=== PATIENT | female | born 2000 | race Caucasian/White ===

== ENCOUNTER 2021-12-17 05:38 | Inpatient (IN) | payer BC ==
[2021-12-17] MEDS ORDERED: Acetaminophen 500 MG Tab PO ONE (06:39)
[2021-12-17] MEDS ORDERED: Scopolamine 1.5 MG Transdermal Patch TOP ONE (06:39)
[2021-12-17] MEDS ORDERED: Celecoxib 200 MG Cap PO ONE (06:41)
[2021-12-17] MEDS ORDERED: Dextrose 5%-Lactated Ringers 1,000 ML IV SCH (06:45)
[2021-12-17] MEDS ORDERED: cefOXitin 2 GM Vial ONE (06:58)
[2021-12-17] MEDS ORDERED: Lidocaine 1% with EPINEPHrine 1:100,000 50 ML MDV ONE (06:58)
[2021-12-17] MEDS ORDERED: Bupivacaine 0.5% 30 ML SDV ONE (06:58)
[2021-12-17] MEDS ORDERED: Glycopyrrolate 0.2 MG/ML 5 ML MDV ONE (07:05)
[2021-12-17] MEDS ORDERED: Neostigmine Methylsulfate 1 MG/ML 5 ML Syringe ONE (07:05)
[2021-12-17] MEDS ORDERED: Dexamethasone 4 MG/ML SDV ONE (07:05)
[2021-12-17] MEDS ORDERED: Ondansetron 4 MG/2 ML SDV ONE (07:05)
[2021-12-17] MEDS ORDERED: fentaNYL 250 MCG/5 ML SDV ONE ×2 (07:05→08:07)
[2021-12-17] MEDS ORDERED: Rocuronium 50 MG/5 ML Vial ONE ×2 (07:05→08:42)
[2021-12-17] MEDS ORDERED: Propofol 200 MG/20 ML SDV ONE (07:05)
[2021-12-17] MEDS ORDERED: Succinylcholine 200 MG/10 ML MDV ONE (07:05)
[2021-12-17] MEDS ORDERED: cefOXitin 2 GM in Sodium Chloride 0.9% 50 ML IV ONE (07:30)
[2021-12-17] MEDS ORDERED: Ketamine 500 MG/5 ML MDV IV SCH (07:45)
[2021-12-17] MEDS ORDERED: Ketamine 17 MG in Sodium Chloride 0.9% 19.83 ML IV SCH (07:45)
[2021-12-17] MEDS ORDERED: Labetalol 20 MG/4 ML Syringe ONE ×2 (08:31→10:23)
[2021-12-17] MEDS ORDERED: hydrALAZINE 20 MG/ML SDV ONE (09:00)
[2021-12-17] MEDS ORDERED: Glucagon,Human Recombinant 1 MG Vial ONE (09:09)
[2021-12-17] MEDS ORDERED: fentaNYL 100 MCG/2 ML SDV ONE ×2 (09:18→10:24)
[2021-12-17] MEDS ORDERED: Lactated Ringers 1,000 ML ONE (10:23)
[2021-12-17] MEDS ORDERED: cefOXitin 2 GM Vial IRR ONE (10:30)
[2021-12-17] MEDS ORDERED: Sugammadex Sodium 200 MG/2 ML VIAL ONE (10:56)
[2021-12-17] MEDS ORDERED: Ondansetron 4 MG/2 ML SDV IVPUSH ONE (12:00)
[2021-12-17] MEDS ORDERED: hydrOXYzine HCL 100 MG/2 ML SDV IM ONE (12:15)
[2021-12-17] MEDS ORDERED: fentaNYL 50 MCG/ML SDV IVPUSH ONE (12:15)
[2021-12-17] MEDS ORDERED: Cyclobenzaprine 10 MG Tab PO PRN (13:47)
[2021-12-17] MEDS ORDERED: hydrOXYzine HCL 100 MG/2 ML SDV IM PRN (14:00)
[2021-12-17] MEDS ORDERED: Labetalol 20 MG/4 ML Syringe IVPUSH PRN (14:00)
[2021-12-17] MEDS ORDERED: traMADol 50 MG Tab PO PRN (14:00)
[2021-12-17] MEDS ORDERED: diphenhydrAMINE 50 MG/ML SDV IVPUSH PRN (14:00)
[2021-12-17] MEDS ORDERED: HYDROmorphone 0.5 MG/0.5 ML Syringe IVPUSH PRN (14:00)
[2021-12-17] MEDS ORDERED: Acetaminophen 500 MG Tab PO PRN (14:00)
[2021-12-17] MEDS ORDERED: HYDROmorphone 1 MG/ML Syringe IV PRN (14:00)
[2021-12-17] MEDS ORDERED: oxyCODONE 5 MG Tab PO PRN (14:00)
[2021-12-17] MEDS: Ondansetron 4 MG/2 ML SDV IVPUSH PRN ×2 (14:39→19:03)
[2021-12-17] MEDS: cefOXitin 2 GM in Sodium Chloride 0.9% 50 ML IV SCH ×2 (14:40→19:20)
[2021-12-17] MEDS: Acetaminophen 500 MG Tab PO SCH ×2 (14:41→21:46)
[2021-12-17] MEDS: Metoclopramide 10 MG/2 ML SDV IVPUSH PRN ×2 (16:52→23:10)
[2021-12-17] MEDS: MVI, Adult with Vitamin K 10 ML, Thiamine 200 MG, Zinc/Copper/Manganese/Selenium 1 ML i... IV SCH ×4 (16:52)
[2021-12-17] MEDS: Pantoprazole 40 MG Vial IVPUSH SCH (16:52)
[2021-12-17] MEDS: Heparin Sodium 5,000 Units/ML Vial SUBCUT SCH (18:12)
[2021-12-17] MEDS: Dextrose 5%-Lactated Ringers 1,000 ML IV SCH (23:15)
[2021-12-18] MEDS: Ondansetron 4 MG/2 ML SDV IVPUSH PRN ×2 (01:24→05:19)
[2021-12-18] MEDS: cefOXitin 2 GM in Sodium Chloride 0.9% 50 ML IV SCH ×4 (02:05→20:39)
[2021-12-18] MEDS: LORazepam 2 MG/ML SDV IVPUSH PRN ×2 (02:19→07:33)
[2021-12-18] MEDS ORDERED: Iopamidol 612 MG/ML 50 ML SDV PO STA (03:18)
[2021-12-18] MEDS: Heparin Sodium 5,000 Units/ML Vial SUBCUT SCH ×2 (05:05→17:00)
[2021-12-18] MEDS: Dextrose 5%-Lactated Ringers 1,000 ML IV SCH ×2 (05:05→11:59)
[2021-12-18] MEDS: Acetaminophen 500 MG Tab PO SCH (05:06)
[2021-12-18] MEDS: Metoclopramide 10 MG/2 ML SDV IVPUSH PRN (05:10)
[2021-12-18] MEDS: Metoclopramide 10 MG/2 ML SDV IVPUSH SCH ×3 (08:34→20:31)
[2021-12-18] MEDS ORDERED: Celecoxib 200 MG Cap PO SCH (09:00)
[2021-12-18] MEDS: Acetaminophen 1,000 MG in Premix Bag 1 BAG IV SCH ×3 (09:09→20:30)
[2021-12-18] MEDS: Escitalopram 10 MG Tab PO SCH (10:30)
[2021-12-18] MEDS: buPROPion 150 MG Tab.ER PO SCH (10:31)
[2021-12-18] MEDS: SCOPOLAMINE PATCH CHECK TOP SCH (10:37)
[2021-12-18] MEDS: Pantoprazole 40 MG Vial IVPUSH SCH (16:53)
[2021-12-18] MEDS: MVI, Adult with Vitamin K 10 ML, Thiamine 200 MG, Zinc/Copper/Manganese/Selenium 1 ML i... IV SCH ×4 (16:56)
[2021-12-19] MEDS: Acetaminophen 1,000 MG in Premix Bag 1 BAG IV SCH ×4 (03:01→21:39)
[2021-12-19] MEDS: Metoclopramide 10 MG/2 ML SDV IVPUSH SCH ×4 (03:02→21:39)
[2021-12-19] MEDS: Heparin Sodium 5,000 Units/ML Vial SUBCUT SCH ×2 (05:54→17:46)
[2021-12-19] MEDS ORDERED: Cyanocobalamin (Vitamin B12) 1,000 MCG/ML SDV IM ONE (09:00)
[2021-12-19] MEDS: buPROPion 150 MG Tab.ER PO SCH (09:06)
[2021-12-19] MEDS: SCOPOLAMINE PATCH CHECK TOP SCH (09:06)
[2021-12-19] MEDS: Escitalopram 10 MG Tab PO SCH (09:06)
[2021-12-19] MEDS: Pantoprazole 40 MG Vial IVPUSH SCH (17:46)
[2021-12-20] MEDS: Ondansetron 4 MG/2 ML SDV IVPUSH PRN (00:48)
[2021-12-20] MEDS: Acetaminophen 1,000 MG in Premix Bag 1 BAG IV SCH ×4 (02:45→20:57)
[2021-12-20] MEDS: Metoclopramide 10 MG/2 ML SDV IVPUSH SCH ×4 (02:45→20:57)
[2021-12-20] MEDS: Dextrose 5%-Lactated Ringers 1,000 ML IV SCH ×3 (02:55→23:21)
[2021-12-20] MEDS ORDERED: Iopamidol 612 MG/ML 50 ML SDV PO ONE (04:00)
[2021-12-20] MEDS: Heparin Sodium 5,000 Units/ML Vial SUBCUT SCH ×2 (05:29→18:06)
[2021-12-20] MEDS: buPROPion 150 MG Tab.ER PO SCH (08:42)
[2021-12-20] MEDS: Escitalopram 10 MG Tab PO SCH (08:42)
[2021-12-20] MEDS: Pantoprazole 40 MG Vial IVPUSH SCH (16:31)
[2021-12-21] MEDS ORDERED: Iopamidol 612 MG/ML 50 ML SDV PO STA (01:38)
[2021-12-21] MEDS: Metoclopramide 10 MG/2 ML SDV IVPUSH SCH ×3 (02:34→15:55)
[2021-12-21] MEDS: Acetaminophen 1,000 MG in Premix Bag 1 BAG IV SCH ×2 (02:34→12:44)
[2021-12-21 04:54] LABS: ESTIMATED GFR 107 mL/min (>60)
[2021-12-21] MEDS: Heparin Sodium 5,000 Units/ML Vial SUBCUT SCH ×2 (06:01→18:21)
[2021-12-21] MEDS ORDERED: Potassium Chloride 20 MEQ, Lidocaine 1% 2 ML in Sodium Chloride 0.9% 100 ML IV SCH ×2 (06:45→08:00)
[2021-12-21] MEDS ORDERED: fentaNYL 100 MCG/2 ML SDV ONE (08:26)
[2021-12-21] MEDS ORDERED: Midazolam 1 MG/ML 2 ML SDV ONE (08:26)
[2021-12-21] MEDS ORDERED: Propofol 200 MG/20 ML SDV ONE ×2 (08:26→10:35)
[2021-12-21] MEDS: Dextrose 5%-Lactated Ringers 1,000 ML IV SCH ×2 (10:08→23:55)
[2021-12-21] MEDS ORDERED: Glycopyrrolate 0.2 MG/ML 5 ML MDV ONE (10:39)
[2021-12-21] MEDS ORDERED: Dexamethasone 4 MG/ML SDV ONE (10:39)
[2021-12-21] MEDS ORDERED: Rocuronium 50 MG/5 ML Vial ONE (10:39)
[2021-12-21] MEDS ORDERED: Succinylcholine 200 MG/10 ML MDV ONE (10:39)
[2021-12-21] MEDS ORDERED: Ondansetron 4 MG/2 ML SDV ONE (10:39)
[2021-12-21] MEDS ORDERED: Neostigmine Methylsulfate 1 MG/ML 5 ML Syringe ONE (10:39)
[2021-12-21] MEDS ORDERED: fentaNYL 250 MCG/5 ML SDV ONE (10:42)
[2021-12-21] MEDS ORDERED: Meropenem 500 MG SDV ONE ×2 (10:55→11:14)
[2021-12-21] MEDS ORDERED: Sodium Chloride 0.9% 10 ML ONE (10:55)
[2021-12-21] MEDS ORDERED: Labetalol 20 MG/4 ML Syringe ONE (11:12)
[2021-12-21] MEDS ORDERED: diphenhydrAMINE 50 MG/ML SDV IVPUSH PRN (11:48)
[2021-12-21] MEDS ORDERED: diphenhydrAMINE 25 MG Cap PO PRN (11:48)
[2021-12-21] MEDS ORDERED: Naloxone 0.4 MG/ML SDV IVPUSH PRN (11:48)
[2021-12-21] MEDS ORDERED: Ondansetron 4 MG/2 ML SDV IVPUSH PRN (11:48)
[2021-12-21] MEDS ORDERED: Ketamine 18 MG in Sodium Chloride 0.9% 19.82 ML IV SCH (12:00)
[2021-12-21] MEDS ORDERED: Ketamine 500 MG/5 ML MDV IV SCH (12:00)
[2021-12-21] MEDS ORDERED: Naloxone 0.4 MG/ML SDV IV PRN (12:00)
[2021-12-21] MEDS ORDERED: Lactated Ringers 1,000 ML ONE (12:04)
[2021-12-21] MEDS ORDERED: Sugammadex Sodium 200 MG/2 ML VIAL ONE (12:17)
[2021-12-21] MEDS: HYDROmorphone/Normal Saline 6 MG/30 ML PCA Vial IV PRN ×2 (12:47→16:37)
[2021-12-21] MEDS ORDERED: hydrOXYzine HCL 100 MG/2 ML SDV IM ONE (13:00)
[2021-12-21] MEDS ORDERED: Scopolamine 1.5 MG Transdermal Patch TOP SCH (13:00)
[2021-12-21] MEDS ORDERED: Albuterol/Ipratropium 3.0-0.5 MG/3 ML Neb Soln INH PRN (14:13)
[2021-12-21] MEDS: Escitalopram 10 MG Tab PO SCH (14:20)
[2021-12-21] MEDS: buPROPion 150 MG Tab.ER PO SCH (14:21)
[2021-12-21] MEDS: SCOPOLAMINE PATCH CHECK TOP SCH (14:29)
[2021-12-21] MEDS ORDERED: Acetaminophen 500 MG Tab PO PRN (15:00)
[2021-12-21] MEDS ORDERED: Metoclopramide 10 MG/2 ML SDV IVPUSH PRN (15:00)
[2021-12-21] MEDS: Pantoprazole 40 MG Vial IVPUSH SCH (15:57)
[2021-12-21] MEDS: MVI, Adult with Vitamin K 10 ML, Thiamine 200 MG, Zinc/Copper/Manganese/Selenium 1 ML i... IV SCH ×4 (16:53)
[2021-12-21] MEDS: Meropenem 500 MG in Sodium Chloride 0.9% 50 ML IV SCH ×2 (16:55→22:40)
[2021-12-21] MEDS: Acetaminophen 500 MG Tab PO SCH (18:21)
[2021-12-22] MEDS: Acetaminophen 500 MG Tab PO SCH ×3 (02:54→17:39)
[2021-12-22] MEDS ORDERED: Iopamidol 612 MG/ML 50 ML SDV PO STA (03:52)
[2021-12-22] MEDS: HYDROmorphone/Normal Saline 6 MG/30 ML PCA Vial IV PRN ×3 (03:59→21:34)
[2021-12-22] MEDS ORDERED: methylPREDNISolone Sodium Succinate 125 MG/2 ML SDV IVPUSH ONE (04:00)
[2021-12-22] MEDS: Meropenem 500 MG in Sodium Chloride 0.9% 50 ML IV SCH ×4 (05:00→22:27)
[2021-12-22] MEDS: Heparin Sodium 5,000 Units/ML Vial SUBCUT SCH ×2 (05:02→17:38)
[2021-12-22] MEDS: Dextrose 5%-Lactated Ringers 1,000 ML IV SCH (06:04)
[2021-12-22] MEDS ORDERED: Ondansetron 4 MG Tab.DIS PO PRN (07:01)
[2021-12-22] MEDS ORDERED: Dextrose 5%-Lactated Ringers 1,000 ML IV SCH (07:15)
[2021-12-22] MEDS: Bisacodyl 5 MG Tab PO SCH ×2 (08:11→21:41)
[2021-12-22] MEDS: Docusate Sodium 100 MG Cap PO SCH ×2 (08:11→21:41)
[2021-12-22] MEDS: Celecoxib 200 MG Cap PO SCH ×2 (08:12→21:41)
[2021-12-22] MEDS: buPROPion 150 MG Tab.ER PO SCH (08:12)
[2021-12-22] MEDS: SCOPOLAMINE PATCH CHECK TOP SCH (08:12)
[2021-12-22] MEDS: Escitalopram 10 MG Tab PO SCH (08:12)
[2021-12-22] MEDS: MVI, Adult with Vitamin K 10 ML, Thiamine 200 MG, Zinc/Copper/Manganese/Selenium 1 ML i... IV SCH ×4 (16:51)
[2021-12-22] MEDS: Pantoprazole 40 MG Tab.CR PO SCH (16:51)
[2021-12-23] MEDS: Acetaminophen 500 MG Tab PO SCH ×3 (01:26→17:26)
[2021-12-23] MEDS: Heparin Sodium 5,000 Units/ML Vial SUBCUT SCH ×2 (05:00→17:26)
[2021-12-23] MEDS: Meropenem 500 MG in Sodium Chloride 0.9% 50 ML IV SCH ×2 (05:00→10:51)
[2021-12-23] MEDS: oxyCODONE 5 MG Tab PO PRN ×3 (08:48→21:06)
[2021-12-23] MEDS: Celecoxib 200 MG Cap PO SCH ×2 (08:49→20:11)
[2021-12-23] MEDS: Docusate Sodium 100 MG Cap PO SCH (08:49)
[2021-12-23] MEDS: Escitalopram 10 MG Tab PO SCH (08:49)
[2021-12-23] MEDS: SCOPOLAMINE PATCH CHECK TOP SCH (08:50)
[2021-12-23] MEDS: buPROPion 150 MG Tab.ER PO SCH (08:50)
[2021-12-23] MEDS: Bisacodyl 5 MG Tab PO SCH (08:55)
[2021-12-23] MEDS ORDERED: Cyanocobalamin (Vitamin B12) 1,000 MCG/ML SDV IM ONE (09:00)
[2021-12-23] MEDS: hydrOXYzine HCl 25 MG Tab PO PRN ×2 (12:53→20:11)
[2021-12-23] MEDS: Pantoprazole 40 MG Tab.CR PO SCH (15:00)
[2021-12-23] MEDS ORDERED: diphenhydrAMINE 25 MG Cap PO PRN (19:36)
[2021-12-23] MEDS: Loperamide 2 MG Cap PO PRN (21:26)
[2021-12-24] MEDS: Acetaminophen 500 MG Tab PO SCH ×2 (01:16→09:09)
[2021-12-24] MEDS: hydrOXYzine HCl 25 MG Tab PO PRN ×2 (01:17→07:42)
[2021-12-24] MEDS: oxyCODONE 5 MG Tab PO PRN ×2 (03:05→09:08)
[2021-12-24] MEDS: Loperamide 2 MG Cap PO PRN (03:23)
[2021-12-24] MEDS: Heparin Sodium 5,000 Units/ML Vial SUBCUT SCH (05:19)
[2021-12-24] MEDS: buPROPion 150 MG Tab.ER PO SCH (08:35)
[2021-12-24] MEDS: Escitalopram 10 MG Tab PO SCH (08:35)
[2021-12-24] MEDS: Celecoxib 200 MG Cap PO SCH (08:35)
== END 2021-12-24 11:30 | disposition home or self-care (01) | DRG 220 ==
LOC: JP.SDS 05:38 → EDSTATUS 08:45 → JP.2SS 13:20
PROVIDERS: ADMIT Surgery; ATTEND Surgery
PROC: 0D194ZA Bypass Duodenum to Jejunum, Percutaneous Endoscopic Approach (ICD-10-PCS; principal; 2021-12-17)
PROC: 0BQT4ZZ Repair Diaphragm, Percutaneous Endoscopic Approach (ICD-10-PCS; 2021-12-17)
PROC: 0FB04ZX Excision of Liver, Percutaneous Endoscopic Approach, Diagnostic (ICD-10-PCS; 2021-12-17)
PROC: 0D798ZZ Dilation of Duodenum, Via Natural or Artificial Opening Endoscopic (ICD-10-PCS; 2021-12-21)
PROC: 0DT64ZZ Resection of Stomach, Percutaneous Endoscopic Approach (ICD-10-PCS; 2021-12-21)
PROC: 0D164ZA Bypass Stomach to Jejunum, Percutaneous Endoscopic Approach (ICD-10-PCS; 2021-12-21)
PROC: 0DT84ZZ Resection of Small Intestine, Percutaneous Endoscopic Approach (ICD-10-PCS; 2021-12-21)
DX: K44.9 Diaphragmatic hernia without obstruction or gangrene (principal); E66.01 Morbid (severe) obesity due to excess calories; J98.11 Atelectasis; R16.0 Hepatomegaly, not elsewhere classified; Z68.44 Body mass index [BMI] 60.0-69.9, adult; K31.5 Obstruction of duodenum; R50.82 Postprocedural fever; Z20.822 Contact with and (suspected) exposure to COVID-19
CPT/HCPCS: 36415; 71045; 71046; 71046-26; 74018; 74018-26; 74019; 74019-26; 74240; 74240-26; 80053; 81001; 81025; 82947; 83735; 84100; 85025; 86850; 86900; 86901; 87086; 87493; 88307; 88313; A9270-GY; C1726; C9113; J0131; J0171; J0330; J0360; J0694; J1100; J1170; J1200; J1610; J1644; J2060; J2185; J2250; J2405; J2704; J2710; J2765; J2795; J2930; J3010; J3410; J3411; J3420; J3480; J3490; J7120; J7121; Q9967; U0002

== ENCOUNTER 2022-10-08 06:05 | Day surgery (SDC) | payer BC ==
[~2022-10-08 06:05] MED LIST: Celecoxib 200 MG Cap PO SCH
[2022-10-08 06:27] LABS: HEMATOCRIT 40.2 % (34.3-46.0); HEMOGLOBIN 13.1 g/dL (11.2-15.5); MEAN CORPUSCULAR HEMOGLOBIN 28.2 pg (31.6-35.5); MEAN CORPUSCULAR HGB CONC 32.6 g/dL (31.6-35.5); MEAN CORPUSCULAR VOLUME 86.6 fL (81.4-99.0); RED BLOOD CELL COUNT 4.64 M/uL (3.77-5.24); WHITE BLOOD CELL COUNT,WBC 8.9 K/uL (3.2-11.0)
[2022-10-08] MEDS ORDERED: Meropenem 500 MG SDV ONE (06:41)
[2022-10-08] MEDS ORDERED: Lidocaine 1% with EPINEPHrine 1:100,000 50 ML MDV ONE (06:41)
[2022-10-08] MEDS ORDERED: Bupivacaine 0.5% 50 ML MDV ONE (06:41)
[2022-10-08] MEDS ORDERED: Propofol 200 MG/20 ML SDV ONE (06:50)
[2022-10-08] MEDS ORDERED: Rocuronium 50 MG/5 ML Vial ONE (06:50)
[2022-10-08] MEDS ORDERED: Glycopyrrolate 0.2 MG/ML 5 ML MDV ONE (06:50)
[2022-10-08] MEDS ORDERED: Dexamethasone 4 MG/ML SDV ONE (06:50)
[2022-10-08] MEDS ORDERED: Ondansetron 4 MG/2 ML SDV ONE (06:50)
[2022-10-08] MEDS ORDERED: Neostigmine Methylsulfate 1 MG/ML 5 ML Syringe ONE (06:50)
[2022-10-08] MEDS ORDERED: Succinylcholine 200 MG/10 ML MDV ONE (06:50)
[2022-10-08] MEDS ORDERED: fentaNYL 250 MCG/5 ML SDV ONE ×2 (06:51→07:55)
[2022-10-08 06:59] LABS: ALANINE AMINOTRANSFERASE,ALT 33 U/L (12-78); ALBUMIN 3.6 g/dL (3.4-5.0); ALKALINE PHOSPHATASE 124 U/L (46-116); ASPARTATE AMNIOTRANSFERASE,AST 22 U/L (15-37); BILIRUBIN TOTAL 0.4 mg/dL (0.2-1.0); BLOOD UREA NITROGEN,BUN 7 mg/dL (7-18); CALCIUM 8.6 mg/dL (8.5-10.1); CARBON DIOXIDE,CO2 27 mmol/L (21-32); CHLORIDE,CL 106 mmol/L (100-108); CREATININE 0.6 mg/dL (0.6-1.0); EST CRCL DRUG DOSING (CG) 136.51 mL/min; ESTIMATED GFR 129 mL/min (>60); FERRITIN 71 ng/ml (8-388); GLUCOSE RANDOM 87 mg/dL (74-106); POTASSIUM,K 3.5 mmol/L (3.6-5.2); PROTEIN TOTAL,TP 7.2 g/dL (6.4-8.2); SODIUM,NA 141 mmol/L (140-148)
[2022-10-08] MEDS ORDERED: Dextrose 5%-Lactated Ringers 1,000 ML IV SCH (07:00)
[2022-10-08 07:06] LABS: ANION GAP 11.5 mmol/L (5.0-14.0)
[2022-10-08] MEDS ORDERED: cefOXitin 2 GM in Sodium Chloride 0.9% 50 ML IV ONE (07:30)
[2022-10-08] MEDS ORDERED: Ketamine 18 MG in Sodium Chloride 0.9% 19.82 ML IV SCH (07:45)
[2022-10-08] MEDS ORDERED: Ketamine 500 MG/5 ML MDV IV SCH (07:45)
[2022-10-08] MEDS ORDERED: Ketorolac 30 MG/ML SDV ONE (08:34)
[2022-10-08] MEDS ORDERED: HYDROmorphone 2 MG Tab PO PRN (10:04)
== END 2022-10-08 12:28 | disposition home or self-care (01) ==
LOC: JP.SDS 06:05
PROVIDERS: ATTEND Surgery
DX: K80.10 Calculus of gallbladder with chronic cholecystitis without obstruction (principal); K82.8 Other specified diseases of gallbladder; G47.33 Obstructive sleep apnea (adult) (pediatric); E66.01 Morbid (severe) obesity due to excess calories; Z88.2 Allergy status to sulfonamides; Z88.8 Allergy status to other drugs, medicaments and biological substances; Z68.41 Body mass index [BMI] 40.0-44.9, adult; Z79.899 Other long term (current) drug therapy
CPT/HCPCS: 36415; 47562; 80053; 81025; 82728; 83735; 84100; 85027; A9270; J0131; J0171; J0330; J0694; J1100; J1885; J2405; J2704; J2710; J2795; J3010; J3490; J7121; 88304; J2020; J2185

== ENCOUNTER 2024-06-25 06:25 | Day surgery (SDC) | payer BC ==
[2024-06-25] MEDS ORDERED: Midazolam 1 MG/ML 2 ML SDV ONE (07:05)
[2024-06-25] MEDS ORDERED: Propofol 200 MG/20 ML SDV ONE ×3 (07:05→07:51)
[2024-06-25] MEDS ORDERED: fentaNYL 50 MCG/ML SDV ONE (07:05)
[2024-06-25] MEDS: Lactated Ringers 1,000 ML IV SCH (07:07)
== END 2024-06-25 09:19 | disposition home or self-care (01) ==
LOC: JP.SDS 06:25
PROVIDERS: ATTEND Surgery
DX: K62.1 Rectal polyp (principal); K64.8 Other hemorrhoids; I10 Essential (primary) hypertension; J45.909 Unspecified asthma, uncomplicated; G47.33 Obstructive sleep apnea (adult) (pediatric); E66.9 Obesity, unspecified; Z98.84 Bariatric surgery status
CPT/HCPCS: 00813; 43235; 45380; 45385; 81025; 88305; J2250; J2704; J3010; J7120